=== PATIENT | female | born 1965 | race Two or more races ===

== ENCOUNTER 2017-10-06 00:30 | Emergency (ER) | payer SELFPAY ==
[~2017-10-06] VITALS: Ht 170.2 cm; Wt 79.4 kg
[2017-10-06] MEDS ORDERED: IPRATROPIUM NEB FS 0.5 MG/2.5 ML AMPUL.NEB ONE (00:34)
[2017-10-06] MEDS ORDERED: ALBUTEROL FS 2.5 MG/3 ML VIAL.NEB ONE (00:34)
[2017-10-06] MEDS ORDERED: DEXAMETHASONE SOD PHOSPHATE 10 MG/ML VIAL ONE (00:40)
[2017-10-06] MEDS ORDERED: DEXAMETHASONE SOD PHOSPHATE 4 MG/ML VIAL IM ONE (01:00)
[2017-10-06] MEDS ORDERED: ALBUTEROL FS 2.5 MG/0.5 ML VIAL.NEB NEB ONE (01:00)
[2017-10-06] MEDS ORDERED: IPRATROPIUM NEB FS 0.5 MG/2.5 ML AMPUL.NEB NEB ONE (01:00)
--- NOTE | 2017-10-06 01:00 | NUR ---
RECEIVED REPORT FROM CONNIE SHORT. PT APPEARS COMFORTABLE. CURRENTLY RECEIVING BREATHING TX.
--- NOTE | 2017-10-06 01:04 | NUR ---
RADIOLOGY AT BEDSIDE FOR CXR.
--- NOTE | 2017-10-06 01:05 | NUR ---
PER RA PLACED IV ON LEFT AC 20G. INTACT AND PATENT. NO S/S INFECTION OR INFILTRATION NOTED.
--- NOTE | 2017-10-06 02:39 | NUR ---
IV removed. Catheter intact and site benign. Pressure and 4x4 applied to site. No bleeding noted. Patient discharged to home in stable condition. Written and verbal after care instructions given. Patient verbalizes understanding of instruction. ambulatory with a steady gait
[2017-10-06 02:40] VITALS: BP 108/64
== END 2017-10-06 02:40 | disposition home or self-care (01) ==
LOC: ER 00:33
DX: J18.9 Pneumonia, unspecified organism (principal); J45.909 Unspecified asthma, uncomplicated
CPT/HCPCS: 71045; 94644; 96372; 99285; A4606; J1100; Z7610

== ENCOUNTER 2018-08-29 18:20 | Inpatient (IN) | payer OTHER ==
[~2018-08-29] VITALS: Ht 170.2 cm; Wt 85.7 kg
[2018-08-29] MEDS ORDERED: ALBUTEROL FS 2.5 MG/3 ML VIAL.NEB ONE ×4 (18:25→22:23)
[2018-08-29] MEDS ORDERED: IPRATROPIUM NEB FS 0.5 MG/2.5 ML AMPUL.NEB ONE ×4 (18:25→22:23)
[2018-08-29] MEDS ORDERED: ALBUTEROL FS 2.5 MG/3 ML VIAL.NEB NEB ONE ×2 (18:30→19:30)
[2018-08-29] MEDS ORDERED: predniSONE 20 MG TABLET PO ONE (18:30)
[2018-08-29] MEDS ORDERED: IPRATROPIUM NEB FS 0.5 MG/2.5 ML AMPUL.NEB NEB ONE ×3 (18:30→22:00)
[2018-08-29] MEDS ORDERED: predniSONE 20 MG TABLET ONE (18:46)
--- NOTE | 2018-08-29 18:53 | NUR ---
EVANGELISTA RA 76 SOB/Asthma "sick w/flu like symptoms last couple days today felt SOB RA sats on arrival 86 given RTx. BS-136". PT AAOX4, DENIES CP, DIZZINESS, N/V @ THIS TIME. PT SEEN & EVAL'D BY DR. CABRERA. PT WHEEZING, GETTING BREATHING TX. PLACED ON COMMERCIAL CREDIT HEAD. WILL CONT TO MONITOR.
[2018-08-29 18:55] LABS: BASOPHILS % (AUTO) 0.5 % (0.0-2.0); EOSINOPHILS % (AUTO) 9.6 % (0.0-6.0); HEMATOCRIT 43 % (33-45); LYMPHOCYTES % (AUTO) 24.6 % (20.0-44.0); MEAN CORPUSCULAR HGB CONC 33 g/dl (31.0-36.0); MEAN CORPUSCULAR VOLUME 87 fL (82-100); MONOCYTES # (AUTO) 0.3 /CMM (0.1-1.30); MONOCYTES % (AUTO) 4.2 % (2.0-12.0); NEUTROPHILS # (AUTO) 4.9 /CMM (1.8-8.9); NEUTROPHILS % (AUTO) 61.1 % (43.0-81.0); PLATELET COUNT (AUTO) 176 /CMM (150-450); RED BLOOD CELL COUNT(AUTO) 4.92 MIL/uL (4.0-5.2); WHITE BLOOD COUNT (AUTO) 8.1 K/uL (4.3-11.0)
[2018-08-29 19:03] LABS: CALCIUM, SERUM 9.6 mg/dL (8.5-10.1); CREATININE 0.8 mg/dL (0.6-1.3); POTASSIUM 3.1 mmol/L (3.5-5.1)
--- NOTE | 2018-08-29 19:28 | NUR ---
PT O2 SAT 80% RA AFTER FIRST BREATHING TREATMENT. PLACED ON 15L O2. DR CABRERA AWARE
--- NOTE | 2018-08-29 19:28 | NUR ---
RECEIVED REPORT FROM BENNIE ROSALES FOR [facility]
--- NOTE | 2018-08-29 20:06 | NUR ---
RT AT BEDSIDE FOR ABG
[2018-08-29 20:14] LABS: ABG BASE EXCESS -0.4 mmol/L; ABG OXYGEN SATURATION 87.1 % (92.0-98.5); ABG PCO2 37.6 mmHg (35.0-45.0); ABG PH 7.419 (7.350-7.450); ABG PO2 52.2 mmHg (75.0-100.0); COHb 0.7 % (0.5-1.5); MetHb 0.3 % (0.0-1.5); O2Hb 86.2 % (94.0-97.0); SITE, ABG Right Radial; VENT MODE, BG SM 50% FIO2
[2018-08-29] MEDS ORDERED: IOHEXOL-350 100 ML VIAL IV ONE ×2 (20:45→22:12)
[2018-08-29] MEDS ORDERED: CT SWABBABLE VALVE TRANS SET 1 EA INFUS.SET MC ONE (20:45)
[2018-08-29] MEDS ORDERED: IV NS 0.9% 0 ML IV ONE (20:45)
[2018-08-29] MEDS ORDERED: IV NS 0.9% 1,000 ML BAG IV ONE (21:00)
[2018-08-29 21:07] LABS: B-TYPE NATRIURETIC PEPTIDE 38 PG/ML (0-125)
[2018-08-29 21:20] LABS: D-DIMER 0.42 mg/L(FEU (0.17-0.50)
--- NOTE | 2018-08-29 21:20 | NUR ---
RENNY PERRY DR TO
[2018-08-29] MEDS ORDERED: ENOXAPARIN SODIUM 60 MG/0.6 ML DISP.SYRIN SQ ONE (21:30)
--- NOTE | 2018-08-29 21:30 | NUR ---
PAGED [facility] FOR PANEL - ANNUAL GIVING DIRECTOR MICHELLE ENGLISH
[2018-08-29] MEDS ORDERED: ENOXAPARIN SODIUM 80 MG/0.8 ML DISP.SYRIN SQ ONE (21:39)
--- NOTE | 2018-08-29 21:45 | NUR ---
CALLED NURSE SUP FOR ICU BED
[2018-08-29] MEDS ORDERED: ALBUTEROL FS 2.5 MG/3 ML VIAL.NEB CONTNEB ONE (22:00)
--- NOTE | 2018-08-29 22:14 | NUR ---
RT AT BEDSIDE
[2018-08-29] MEDS ORDERED: ALBUTEROL FS 2.5 MG/0.5 ML VIAL.NEB NEB PRN (22:30)
[2018-08-29] MEDS ORDERED: IPRATROPIUM NEB FS 0.5 MG/2.5 ML AMPUL.NEB NEB PRN (22:30)
--- NOTE | 2018-08-29 22:30 | NUR ---
RADIOLOGY AT BEDSIDE FOR CT. PT REFUSED, STATES SHE DOES NOT FEEL COMFORTABLY LAYING FLAT. MD AWARE.
[2018-08-29] MEDS ORDERED: ALBU18HF2 INH (22:58)
--- NOTE | 2018-08-29 23:01 | NUR ---
GAVE REPORT TO CHINO ROSALES FOR [facility]
--- NOTE | 2018-08-29 23:01 | NUR ---
RECEIVED REPORT FROM SHEET METAL APPRENTICECONNIE AQUINO FOR CONTINUITY OF CARE.
--- NOTE | 2018-08-29 23:20 | NUR ---
RECEIVED PT IN RESPIRATORY DISTRESS ON BREATHING TREATMENT WITH O2 @ 6LPM. PT ABLE TO STAND AND PIVOT TO BED. PT IS A/O X 4 AND ABLE TO MAKE NEEDS KNOWN. PT IS ABLE TO MAKE SENTENCES BUT GETS SHORT OF BREATHING AFTER EACH SENTENCE. PT IS ON TELE WITH ST ON THE MONITOR. PT PT HAS AUDIBLE WHEEZING NOTED. PT NOT C/O ANY PAIN AT THIS TIME, BUT IS C/O SOB AND DIFFICULTY BREATHING. PT IS SITTING IN HIGH FOWLERS CURRENTLY. PT HAS LEFT HAND 22G THAT IS CLEAN DRY INTACT AND PATENT. PT HAS LEFT AC 20G THAT IS CLEAN DRY INTACT AND PATENT WITH SALINE FLUSH. BED IN LOW LOCK POSITION WITH RIALS UP X 2. CALL LIGHT WITHIN REACH AND ALL SAFETY MEASURES ENSURED AND CARRIED OUT. WILL CONTINUE TO MONITOR PT.
--- NOTE | 2018-08-29 23:23 | NUR ---
PT TRANSFERRED PER ACLS PROTOCOL
[2018-08-29 23:40] VITALS: BP 152/104
--- NOTE | 2018-08-29 23:45 | NUR ---
2335- BREATHING TREATMENT FINISHED AND PLACED PT ON SIMPLE MASK. 2340- PLACED PT ON NON REBREATHER DUE TO PT NOT TOLERATING SIMPLE MASK. 2345- PT STILL NOT TOLERATING NON REBREATHER MASK AND RT SUGGESTED CPAP. PT AGREED AND NOTIFIED MICHELLE ENGLISH DIRECTOR TALENT CAR INSPECTOR FOR CPAP ORDER. MICHELLE AGREED AND ORDERED CPAP 10 AND TITRATE TO KEEP O2 SAT >92. READ BACK ORDERS PERFORMED AND CARRIED OUT. PT PLACED ON CPAP AND TOLERATING WELL WITH O2 SAT @ 95%.
[2018-08-29 23:56] VITALS: BP 158/86
[2018-08-30] VITALS (26 sets, daily range): BP systolic 104–163; BP diastolic 46–100
[2018-08-30] MEDS ORDERED: MAGNESIUM HYDROXIDE 30 ML UDC PO PRN
[2018-08-30] MEDS ORDERED: ACETAMINOPHEN 325 MG TABLET PO PRN
[2018-08-30] MEDS ORDERED: methylPREDNISolone SOD SUCC 125 MG/2ML VIAL IV ONE
[2018-08-30] MEDS ORDERED: ZOLPIDEM TARTRATE 5 MG TABLET PO PRN
[2018-08-30] MEDS ORDERED: Z GUARD REMEDY 2 OZ OINT TP PRN
[2018-08-30] MEDS ORDERED: DEXTROSE 50%-WATER 50 ML DISP.SYRIN IV PRN
[2018-08-30] MEDS ORDERED: INSULIN REGULAR, HUMAN 100 UNIT/ML 3 ML VIAL SQ PRN
[2018-08-30] MEDS ORDERED: ONDANSETRON HCL/PF 4 MG/2 ML VIAL IVP PRN
[2018-08-30] MEDS: IV NS 0.9% 1,000 ML IV PRN ×2 (00:04→13:17)
[2018-08-30] MEDS: BLOOD SUGAR DIAGNOSTIC 1 EACH STRIP IN SCH ×4 (00:05→17:48)
[2018-08-30] MEDS: IPRATROPIUM NEB FS 0.5 MG/2.5 ML AMPUL.NEB NEB SCH ×6 (00:30→19:38)
--- NOTE | 2018-08-30 00:37 | NUR ---
UNABLE TO TAKE PT TO CT DUE TO CPAP AND RESPIRATORY DISTRESS. MICHELLE ENGLISH DEBONE PROCESSING SUPERVISOR CHILDCARE PROVIDER AWARE.
[2018-08-30] MEDS ORDERED: POTASSIUM CL. PREMIX PERIPHER. 100 ML ONE (00:39)
[2018-08-30] MEDS: POTASSIUM CL. PREMIX PERIPHER. 50 ML IV SCH ×2 (00:40→01:27)
[2018-08-30] MEDS: ALBUTEROL FS 2.5 MG/0.5 ML VIAL.NEB NEB SCH ×5 (01:36→19:37)
[2018-08-30] MEDS: HYDROCODONE/APAP 5/325MG 1 EACH TABLET PO PRN ×2 (03:05→11:09)
--- NOTE | 2018-08-30 04:03 | NUR ---
NOTIFIED MICHELLE ENGLISH GRE TUTOR BECAUSE PT IS ON CPAP AND BEGINS TO COUGH TO THE POINT THAT SHE VOMITS/SPITS UP AND HAS TO TAKE THE CPAP OFF. THIS HAPPENS 5-10 MIN AFTER CPAP IS PLACED. MICHELLE GAVE ORDERS FOR ROBITUSSIN/CODEIN 10ML Q6H PRN COUGH. READBACK ORDERS PERFORMED AND CARRIED OUT.
--- NOTE | 2018-08-30 04:05 | NUR ---
CONTINUED TO KEEP CPAP OFF AND KEPT PT ON SIMPLE MASK IN WHICH PT TOLERATED WELL WITH O2 SAT @ 96%. WILL CONTINUE TO MONITOR PT.
[2018-08-30 04:18] LABS: BASOPHILS % (AUTO) 0.3 % (0.0-2.0); EOSINOPHILS % (AUTO) 0.1 % (0.0-6.0); HEMATOCRIT 44 % (33-45); LYMPHOCYTES # (AUTO) 0.5 /CMM (0.8-4.8); LYMPHOCYTES % (AUTO) 4.7 % (20.0-44.0); MEAN CORPUSCULAR HGB CONC 32 g/dl (31.0-36.0); MEAN CORPUSCULAR VOLUME 87 fL (82-100); MONOCYTES # (AUTO) 0.1 /CMM (0.1-1.30); MONOCYTES % (AUTO) 1.3 % (2.0-12.0); NEUTROPHILS # (AUTO) 10.5 /CMM (1.8-8.9); NEUTROPHILS % (AUTO) 93.6 % (43.0-81.0); PLATELET COUNT (AUTO) 185 /CMM (150-450); RED BLOOD CELL COUNT(AUTO) 5.02 MIL/uL (4.0-5.2); WHITE BLOOD COUNT (AUTO) 11.2 K/uL (4.3-11.0)
[2018-08-30] MEDS: methylPREDNISolone SOD SUCC 125 MG/2ML VIAL IV SCH ×3 (04:21→21:04)
[2018-08-30] MEDS: GUAIFENESIN/CODEINE 10 ML UDC PO PRN ×2 (04:21→20:01)
[2018-08-30 04:25] LABS: CALCIUM, SERUM 9.2 mg/dL (8.5-10.1); CREATININE 0.9 mg/dL (0.6-1.3); MAGNESIUM 1.8 mg/dL (1.8-2.4); PHOSPHORUS 3.7 mg/dL (2.5-4.9); POTASSIUM 3.8 mmol/L (3.5-5.1)
--- NOTE | 2018-08-30 07:05 | NUR ---
RN NOTE RECVD PATIENT AWAKE, ALERT AND ORIENTED X4, SHE IS ABLE TO MAKE THINGS KNOWN AND VERBALIZE NEEDS. BREATHING EVEN UNLABORED WITH NO DISTRESS NOTED. ON SIMPLE MASK AT 9LPM SATURATION WELL 96%. PATIENT IS ABLE TO MOVE ALL EXTREMITIES. SKIN WARM TO TOUCH AND INTACT. IV SITE INTACT AND PATENT WITH NO S/SX OF INFILTRATION. ALL SAFETY MEASURES DONE. BED LOW AND LOCKED POSITION. PLACED CALL LIGHT WITH IN REACH. WILL CONTINUE TO MONITOR PATIENT CLOSELY. Addendum: 08/30/18 at 0730 by LUKAS HERNANDEZ RN DISREGARD PREVIOUS NOTES
--- NOTE | 2018-08-30 07:15 | NUR ---
PT REMAINS IN NO ACUTE DISTRESS IN BED. PT DID NOT HAVE ANY SIGNIFICANT CHANGE IN CONDITION DURING SHIFT. PT TOLERATED SIMPLE MASK @ 9LPM. ALL NEEDS MET, ALL ORDERS CARRIED OUT. WILL ENDORSE CARE TO AM RN FOR CONTINUITY OF CARE.
--- NOTE | 2018-08-30 07:20 | NUR ---
RN NOTE RECVD PATIENT AWAKE, ALERT AND ORIENTED X4, SHE IS ABLE TO MAKE THINGS KNOWN AND VERBALIZE NEEDS. BREATHING EVEN UNLABORED WITH NO DISTRESS NOTED. ON SIMPLE MASK AT 9LPM SATURATION WELL 96%. PATIENT IS ABLE TO MOVE ALL EXTREMITIES. SKIN WARM TO TOUCH AND INTACT. IV SITE INTACT AND PATENT WITH NO S/SX OF INFILTRATION. ALL SAFETY MEASURES DONE. BED LOW AND LOCKED POSITION. PLACED CALL LIGHT WITH IN REACH. WILL CONTINUE TO MONITOR PATIENT CLOSELY.
--- NOTE | 2018-08-30 07:21 | NUR ---
RN NOTE ON ENVIRONMENTAL SERVICES WORKER CURRENT RHYTHM IS SINUS RHYTHM HR OF 88
[2018-08-30] MEDS ORDERED: ENOXAPARIN SODIUM 80 MG/0.8 ML DISP.SYRIN SQ SCH (09:00)
--- NOTE | 2018-08-30 09:08 | NUR ---
RN NOTE DR LEVIN AT BEDSIDE
[2018-08-30] MEDS ORDERED: LEVOFLOXACIN (500MG) 500 MG TABLET PO SCH (10:30)
--- NOTE | 2018-08-30 10:30 | NUR ---
RN NOTE TOOK PATIENT DOWN FOR CTA. PATIENT REMAINS STABLE WITH NO DISTRESS NOTED.
[2018-08-30] MEDS ORDERED: LEVOFLOXACIN (250MG) 250 MG TABLET PO ONE (12:00)
--- NOTE | 2018-08-30 13:15 | NUR ---
RN NOTE SPARE PARTS CLERK DONTE AT BEDSIDE
--- NOTE | 2018-08-30 15:10 | NUR ---
RN NOTE MARICRUZ (CASE MANGER) FROM [place] CALLED TO GET INFORMATION ABOUT PATIENT STATUS. MARICRUZ STATED SHE IS ARRANGING TRANSPORTATION FROM PATIENT TO GO TO [place]. PATIENT IS MADE AWARE AND AGREED. MARICRUZ STATED SHE WILL CALL BACK TO PROVIDE TRANSPORTATION STATUS AND ROOM NUMBER FOR PATIENT ONES A BED OPENS UP.
--- NOTE | 2018-08-30 15:14 | NUR ---
RN NOTE MD MADE AWARE OF PATIENT TRANSPORTATION STATUS TO [place].
--- NOTE | 2018-08-30 17:25 | NUR ---
RN SHAUN CABELLO FROM [facility] CALLED PROVIDED INFORMATION FOR PATIENTS DESKTOP ANALYST TIME OF TRANSFER TO [facility], ROOM #[id number] CONTACT INFO [phone] UGARTE. ETA DESKTOP ANALYST FOR PATIENT IS 60-90 MINS. PATIENT AND CHARGE NURSE MADE AWARE
--- NOTE | 2018-08-30 17:30 | NUR ---
RN NOTE DINNER AT BEDSIDE
--- NOTE | 2018-08-30 17:39 | NUR ---
RN NOTE REPORT GIVEN TO TODD AT [facility] TO CONTINUE CONTINUITY OF CARE.
--- NOTE | 2018-08-30 18:59 | NUR ---
RN NOTE PATIENT REMAINS STABLE THROUGHOUT SHIFT. AWAITING FOR ENGLISH PROFESSOR FOR PATIENT. WILL ENDORSE TO NEXT SHIFT TO CONTINUE TO MONITOR CONTINUITY OF CARE.
--- NOTE | 2018-08-30 20:01 | NUR ---
ICU/RN- RECEIVED PT. AWAKE, ALERT, EXPRESSIVE OF NEEDS. BREATHING SPONTANEOUSLY TO ROOM AIR W/ O2 SUPPORT OF 4 L/ NC, STA.-95%. NOT IN ANY DISTRESS. SOB W/ MINIMAL EXERTION. COUGHING FORCEFULLY, PRODUCTIVE, ABLE TO EXPEL MODERATE AMOUNT OF LOOSE CLEAR, BLOOD TINGED SPUTUM. MEDICATED WITH ROBITUSSIN W/ CODEINE 10ML PO. WILL REASSESS FOR PRN EFFECTIVENESS. PT. IS FOR TRANSFER TO [facility] [place]. TELEMETRY FLOOR ROOM [id number]. AWAITING FOR AMBULANCE.
--- NOTE | 2018-08-30 21:13 | NUR ---
ICU/RN-FOLLOW UP W/ [facility] CM REGARDING PT. COOK HELPER.
--- NOTE | 2018-08-30 22:10 | NUR ---
icu/rn- pt. remains stable. denies discomfort. dc to [facility] via [facility] PER [facility] PROTOCOL..
[2018-08-31] MEDS ORDERED: ENOXAPARIN SODIUM 40 MG/0.4 ML DISP.SYRIN SQ SCH (09:00)
[2018-08-31] MEDS ORDERED: LEVOFLOXACIN (750 MG) 750 MG TABLET PO SCH (09:00)
== END 2018-08-30 22:12 | disposition short-term general hospital (02) | DRG 189 ==
LOC: ER 18:21 → ICU 22:16
PROVIDERS: ADMIT Nurse Practitioner Acute Care; ATTEND Nurse Practitioner Acute Care
PROC: 5A09357 Assistance with Respiratory Ventilation, Less than 24 Consecutive Hours, Continuous Positive Airway Pressure (ICD-10-PCS; principal; 2018-08-30)
DX: J96.01 Acute respiratory failure with hypoxia (principal); J15.9 Unspecified bacterial pneumonia; J45.901 Unspecified asthma with (acute) exacerbation; D68.59 Other primary thrombophilia; E87.2 Acidosis; E66.01 Morbid (severe) obesity due to excess calories; E87.6 Hypokalemia; Z87.891 Personal history of nicotine dependence; J06.9 Acute upper respiratory infection, unspecified; Z87.01 Personal history of pneumonia (recurrent); Z68.29 Body mass index [BMI] 29.0-29.9, adult
CPT/HCPCS: 36415; 36600; 71045-TC; 80048-TC; 80061-TC; 82803-TC; 82962-TC; 83735-TC; 83880; 84100-TC; 84484-TC; 85025-TC; 85378-TC; 85730-TC; 87081-TC; 87400; 94799-TC; G0378; J1650; J1815; J2405; J2930; J3480; J7030; J7050; Q9967